=== PATIENT | male | born 1970 | race African-American/Black ===

== ENCOUNTER → 2017-07-05 | Emergency (ER) | END | disposition home or self-care (01) ==

== ENCOUNTER 2017-09-15 05:54 | Emergency (ER) | END 2017-09-15 07:47 | disposition home or self-care (01) ==

== ENCOUNTER 2017-11-17 09:21 | Emergency (ER) | END 2017-11-17 13:00 | disposition home or self-care (01) ==

== ENCOUNTER 2018-07-09 05:28 | Emergency (ER) | payer OTHER ==
[~2018-07-09] VITALS: Ht 180.3 cm; Wt 161.0 kg
[~2018-07-09 05:28] MED LIST: ACET500C5 PO; ALBU8.5H8 INH; BACTDS PO; CEPH-443 PO; CLOT30CR24 TOP; NAPR-985 PO; ONDA8TAB14 PO; TRAM50TA2 PO
[2018-07-09 05:31] VITALS: Ht 180.3 cm; Wt 161.0 kg
[2018-07-09] MEDS ORDERED: ALBUTEROL 0.083% (NEB) 2.5 MG/3 ML AMP HHN STA (06:25)
[2018-07-09] MEDS ORDERED: IPRATROPIUM (NEB) 0.5 MG/2.5 ML AMP HHN ONE (06:30)
[2018-07-09] MEDS ORDERED: DEXAMETHASONE 10 MG/ML 1 ML INJ IM ONE (07:00)
[2018-07-09] MEDS ORDERED: ALBU8.5H8 INH (07:18)
[2018-07-09] MEDS ORDERED: MED4DP PO (07:18)
[2018-07-09] MEDS ORDERED: BENZ-6 PO (07:18)
[2018-07-09] MEDS ORDERED: PROM6.2515 PO (07:18)
[2018-07-09 07:41] VITALS: BP 142/86; PULSE 84; RESP 18
--- NOTE | 2018-07-09 08:10 | ERD ---
ER Documentation Chief Complaint Chief Complaint cough x 2 weeks. c/o sob. no wheezing HPI 48-year-old male presenting with cough times 2 weeks. Patient states that he has been mildly short of breath and his son has been complaining of wheezing at home. He has had a mild runny nose but no fevers. Has been taking Robitussin with no alleviation. Denies any leg swelling or cardiac chest pain. Medical history is diabetes. NKDA. Surgical history denies. Social history denies. ROS All systems reviewed and are negative except as per history of present illness. Medications Home Meds Active Scripts Methylprednisolone* (Medrol* DOSE PACK) 4 Mg/Dose-Pack Tab.ds.pk, 4 MG PO . DIRECTED, #1 PACKET Prov:SWAPNA MICHAEL PA-C 07/09/18 Albuterol Sulfate* (Proair HFA*) 8.5 Gm Hfa.aer.ad, 2 PUFF INH Q4, #1 INHALER Prov:SWAPNA MICHAEL PA-C 07/09/18 Benzonatate* (Tessalon Perle*) 100 Mg Capsule, 100 MG PO Q8H PRN for COUGH, #30 CAP Prov:SWAPNA MICHAEL PA-C 07/09/18 Promethazine Hcl* (Promethazine Hcl* Syrup) 6.25 Mg/5 Ml Syrup, 6.25 MG PO Q6H PRN for COUGH, #100 ML Prov:SWAPNA MICHAEL PA-C 07/09/18 Albuterol Sulfate* (Proair HFA*) 8.5 Gm Hfa.aer.ad, 2 PUFF INH Q4, #1 INHALER Prov:SWAPNA MICHAEL PA-C 11/17/17 Acetaminophen* (Tylophen*) 500 Mg Capsule, 1 CAP PO Q6H PRN for PAIN AND OR ELEVATED TEMP, #15 CAP Prov:KATHIE SAM MD 09/15/17 Ondansetron (Ondansetron Odt) 8 Mg Tab.rapdis, 8 MG PO Q6H PRN for NAUSEA AND/OR VOMITING, #10 TAB Prov:KATHIE SAM MD 09/15/17 Tramadol HCl (Tramadol HCl) 50 Mg Tablet, 50 MG PO Q4 PRN for PAIN, #20 TAB Prov:WERNER DELANEY PA-C 07/05/17 Naproxen* (Naprosyn*) 500 Mg Tablet, 500 MG PO BID PRN for PAIN AND/OR INFLAMMATION, #30 TAB Prov:WERNER DELANEYC 07/05/17 Clotrimazole* (Clotrimazole* AF) 1% - 30 Gm Cream.gm., 1 APPLIC TOP BID for 14 Days, TUB Prov:TIARRA ADEN [employer] 04/05/16 Sulfamethoxazole-Trimethoprim* (Bactrim* DS) 800-160 Mg Tab, 1 TAB PO BID for 7 Days, #14 TAB Prov:TIARRA ADEN [employer] 03/11/16 Sulfamethoxazole-Trimethoprim* (Bactrim* DS) 800-160 Mg Tab, 1 TAB PO BID for 5 Days, TAB Prov:BENY EPSTEIN PA-C 02/13/16 Cephalexin* (Keflex*) 500 Mg Capsule, 500 MG PO QID for 10 Days, CAP Prov:BENY EPSTEIN PA-C 02/13/16 Allergies Allergies: Coded Allergies: No Known Allergy (Unverified , 04/05/16) PMhx/Soc History of Surgery: No Anesthesia Reaction: No Hx Neurological Disorder: No Hx Respiratory Disorders: No Hx Cardiac Disorders: No Hx Psychiatric Problems: No Hx Miscellaneous Medical Probl: Yes (DM) Hx Alcohol Use: No Hx Substance Use: No Hx Tobacco Use: No Smoking Status: Never smoker FmHx Family History: No diabetes, No coronary disease, No other Physical Exam Vitals Vital Signs Date Temp Pulse Resp B/P (MAP) Pulse Ox O2 O2 Flow FiO2 Time Delivery Rate 07/09/18 97.8 84 18 142/86 97 Room Air 07:41 (104) 07/09/18 21 20 93 21 07:11 07/09/18 97.8 100 18 142/86 97 05:31 (104) Physical Exam GENERAL: The patient is well-appearing, well-nourished, in no acute distress HEENT: Atraumatic. Conjunctivae are pink. Pupils equal, round, and reactive to light. There is no scleral icterus. Tympanic membranes clear bilaterally. Oropharynx clear. . CHEST: Clear to auscultation bilaterally. There are no rales, wheezes or rhonchi. HEART: Regular rate and rhythm. No murmurs, clicks, rubs or gallops. No S3 or S4. Results 24 hrs Current Medications Medications Dose Sig/Briseyda Start Time Status Last (Trade) Ordered Route PRN Stop Time Admin Dose Reason Admin Albuterol 5 mg ONCE STAT 07/09/18 DC 07/09/18 (Proventil HHN 06:25 07:10 0.083% (Neb)) 07/09/18 06:27 Ipratropium 0.5 mg ONCE ONCE 07/09/18 DC 07/09/18 [place] HHN 06:30 07:10 (Atrovent 07/09/18 06:31 0.02% (Neb)) 10 mg ONCE ONCE 07/09/18 DC 07/09/18 Dexamethasone IM 07:00 07:31 (Decadron) 07/09/18 07:01 Procedures/MDM DIAGNOSTIC IMAGING REPORT Patient: RADHA ROSALES : 1970 Age: 48 Sex: M MR #: [id number] DOS: 07/09/1825 Ordering MD: BANDAR MICHAEL PA-C Location: [facility] Room/Bed: PROCEDURE: XR Chest 1 View CLINICAL INDICATION: Cough. TECHNIQUE: VIEWS: 1 IMAGES: 2 COMPARISON: November 17, 2017 FINDINGS: CARDIAC AND MEDIASTINAL SILHOUETTES: Within normal limits. LUNGS: Appear clear. OSSEOUS STRUCTURES: Unremarkable. IMPRESSION: 1. No acute abnormality is appreciated. ER Course: Albuterol and Atrovent breathing treatment given ED. Decadron given ED. MDM: 48-year-old male presenting with cough. I have low suspicion for pneumonia. I have low suspicion for respiratory distress or hypoxia. Patient likely has viral cough and will be discharged with supportive medications. I have low suspicion for cardiac emergency. Patient is told if symptoms change or worsen to immediately return to the ER. All questions answered at discharge Departure Diagnosis: Primary Impression: Cough Condition: Stable Patient Instructions: Cough, Chronic, Uncertain Cause, (Adult) Referrals: COMMUNITY CLINICS YOU HAVE RECEIVED A MEDICAL SCREENING EXAM AND THE RESULTS INDICATE THAT YOU DO NOT HAVE A CONDITION THAT REQUIRES URGENT TREATMENT IN THE EMERGENCY DEPARTMENT. FURTHER EVALUATION AND TREATMENT OF YOUR CONDITION CAN WAIT UNTIL YOU ARE SEEN IN YOUR DOCTORS OFFICE WITHIN THE NEXT 1-2 DAYS. IT IS YOUR RESPONSIBILITY TO MAKE AN APPOINTMENT FOR FOLOW-UP CARE. IF YOU HAVE A PRIMARY DOCTOR --you should call your primary doctor and schedule an appointment IF YOU DO NOT HAVE A PRIMARY DOCTOR YOU CAN CALL OUR PHYSICIAN REFERRAL HOTLINE AT IF YOU CAN NOT AFFORD TO SEE A PHYSICIAN YOU CAN CHOSE FROM THE FOLLOWING [facility] [address] [facility] [address] [facility] [address] [facility] [address] [facility] [address] [facility]. [facility]. [address] Additional Instructions: FOLLOW UP WITH YOUR PRIMARY CARE PHYSICIAN TOMORROW.Return to this facility if you are not improving as expected. SWAPNA MICHAEL PA-C Jul 09, 2018 08:10
== END 2018-07-09 07:41 | disposition home or self-care (01) ==
LOC: FTE 05:28
DX: R05 Cough (principal); E11.9 Type 2 diabetes mellitus without complications
CPT/HCPCS: 71045; 94664; 96372; J1100; Z7502; Z7610

== ENCOUNTER 2018-12-09 15:07 | Emergency (ER) | payer SELFPAY ==
[~2018-12-09] VITALS: Ht 180.3 cm; Wt 157.0 kg
[~2018-12-09 15:07] MED LIST changes: +BENZ-6 PO; +MED4DP PO; +PROM6.2515 PO
[2018-12-09 15:22] VITALS: Ht 180.3 cm; Wt 157.0 kg
[2018-12-09] MEDS ORDERED: VANCOMYCIN 1 GM (PMX) 250 ML IVPB STA (18:03)
[2018-12-09] MEDS ORDERED: ACETAMINOPHEN 325 MG TAB PO STA (18:03)
[2018-12-09] MEDS ORDERED: DEXAMETHASONE 10 MG/ML 1 ML INJ IV ONE (18:30)
[2018-12-09] MEDS ORDERED: CEFTRIAXONE 1 GM/50 ML (PMX) 50 ML IVPB ONE (18:30)
--- NOTE | 2018-12-09 21:19 | ERD ---
ER Documentation Chief Complaint Chief Complaint LEFT LOWER LEG SWELLING, REPORTS SMALL KNIFE PUNCTURE WOUND HPI 48-year-old male, with history of diabetes, morbid obesity and venous stasis, presents to the emergency department, complaining of 3 days with progressive worsening of left lower extremity edema, erythema and local tenderness, a minor puncture wound with a knife while the patient was cooking and the knife fell off his hands. He denies fever, no chills, no antalgic gait. No reports of distal weakness, numbness or tingling. ROS All systems reviewed and are negative except as per history of present illness. Medications Home Meds Active Scripts Ibuprofen* (Motrin*) 400 Mg Tab, 400 MG PO Q6H PRN for PAIN AND OR ELEVATED TEMP, #30 TAB Prov:HORACE MCKINNEY MD 12/09/18 Sulfamethoxazole/Trimethoprim* (Bactrim Ds* Tablet) 1 Each Tablet, 1 TAB PO BID, #14 TAB Prov:HORACE MCKINNEY MD 12/09/18 Cephalexin* (Keflex*) 500 Mg Capsule, 500 MG PO QID for 7 Days, CAP Prov:HORACE MCKINNEY MD 12/09/18 Methylprednisolone* (Medrol* DOSE PACK) 4 Mg/Dose-Pack Tab.ds.pk, 4 MG PO . DI RECTABBY, #1 PACKET Prov:SWAPNA MICHAEL PA-C 07/09/18 Albuterol Sulfate* (Proair HFA*) 8.5 Gm Hfa.aer.ad, 2 PUFF INH Q4, #1 INHALER Prov:SWAPNA MICHAEL PA-C 07/09/18 Benzonatate* (Tessalon Perle*) 100 Mg Capsule, 100 MG PO Q8H PRN for COUGH, #30 CAP Prov:SWAPNA MICHAEL PA-C 07/09/18 Promethazine Hcl* (Promethazine Hcl* Syrup) 6.25 Mg/5 Ml Syrup, 6.25 MG PO Q6H PRN for COUGH, #100 ML Prov:SWAPNA MICHAEL PA-C 07/09/18 Albuterol Sulfate* (Proair HFA*) 8.5 Gm Hfa.aer.ad, 2 PUFF INH Q4, #1 INHALER Prov:SWAPNA MICHAEL PA-C 11/17/17 Acetaminophen* (Tylophen*) 500 Mg Capsule, 1 CAP PO Q6H PRN for PAIN AND OR ELEVATED TEMP, #15 CAP Prov:KATHIE SAM MD 09/15/17 Ondansetron (Ondansetron Odt) 8 Mg Tab.rapdis, 8 MG PO Q6H PRN for NAUSEA AND/OR VOMITING, #10 TAB Prov:KATHIE SAM MD 09/15/17 Tramadol HCl (Tramadol HCl) 50 Mg Tablet, 50 MG PO Q4 PRN for PAIN, #20 TAB Prov:WERNER DELANEY PA-C 07/05/17 Naproxen* (Naprosyn*) 500 Mg Tablet, 500 MG PO BID PRN for PAIN AND/OR INFLAMMATION, #30 TAB Prov:WERNER DELANEY PA-C 07/05/17 Clotrimazole* (Clotrimazole* AF) 1% - 30 Gm Cream.gm., 1 APPLIC TOP BID for 14 Days, TUB Prov:TIARRA ADEN NP 04/05/16 Sulfamethoxazole-Trimethoprim* (Bactrim* DS) 800-160 Mg Tab, 1 TAB PO BID for 7 Days, #14 TAB Prov:TIARRA ADEN MARK[employer]ING SALES CONSULTANT 03/11/16 Sulfamethoxazole-Trimethoprim* (Bactrim* DS) 800-160 Mg Tab, 1 TAB PO BID for 5 Days, TAB Prov:BENY EPSTEIN PA-C 02/13/16 Cephalexin* (Keflex*) 500 Mg Capsule, 500 MG PO QID for 10 Days, CAP Prov:BENY EPSTEIN PA-C 02/13/16 Allergies Allergies: Coded Allergies: No Known Allergy (Unverified , 04/05/16) PMhx/Soc The patient reports history of diabetes. History of Surgery: No Anesthesia Reaction: No Hx Neurological Disorder: No Hx Respiratory Disorders: No Hx Cardiac Disorders: No Hx Psychiatric Problems: No Hx Miscellaneous Medical Probl: No Hx Alcohol Use: No Hx Substance Use: No Hx Tobacco Use: No Smoking Status: Never smoker FmHx Family History: diabetes; No coronary disease Physical Exam Vitals Vital Signs Date Temp Pulse Resp B/P (MAP) Pulse Ox O2 O2 Flow FiO2 Time Delivery Rate 12/09/18 98.7 88 20 154/88 95 22:53 (110) 12/09/18 100.2 99 20 154/62 95 15:22 (92) Physical Exam Const: No acute distress Head: Atraumatic Eyes: Normal Conjunctiva ENT: Normal External Ears, Nose and Mouth. Neck: Full range of motion. No meningismus. Resp: Clear to auscultation bilaterally Cardio: Regular rate and rhythm, no murmurs Abd: Soft, non tender, non distended. Normal bowel sounds Skin: No petechiae or rashes Back: No midline or flank tenderness Ext: Left lower extremity: With a well demarcated area of erythema, edema and induration over the distal third without compromising the foot. Distal neurovascular exam intact. No evidence of fluctuance. Neur: Awake and alert Psych: Normal Mood and Affect Result Diagram: 12/09/18 1902 12/09/181902 Results 24 hrs Laboratory Tests Test 12/09/18 19:02 12/09/18 19:03 White Blood Count 18.1 10^3/ul Red Blood Count 4.92 10^6/ul Hemoglobin 13.2 g/dl Hematocrit 41.9 % Mean Corpuscular Volume 85.2 fl Mean Corpuscular Hemoglobin 26.8 pg Mean Corpuscular Hemoglobin Concent 31.5 g/dl Red Cell Distribution Width 14.7 % Platelet Count 284 10^3/UL Mean Platelet Volume 9.6 fl Immature Granulocytes % 0.600 % Neutrophils % 76.9 % Lymphocytes % 10.2 % Monocytes % 11.2 % Eosinophils % 0.7 % Basophils % 0.4 % Nucleated Red Blood Cells % 0.0 /100WBC Immature Granulocytes # 0.100 10^3/ul Neutrophils # 14.0 10^3/ul Lymphocytes # 1.8 10^3/ul Monocytes # 2.0 10^3/ul Eosinophils # 0.1 10^3/ul Basophils # 0.1 10^3/ul Nucleated Red Blood Cells # 0.0 10^3/ul Sodium Level 137 mmol/L Potassium Level 4.2 mmol/L Chloride Level 98 mmol/L Carbon Dioxide Level 32 mmol/L Anion Gap 7 Blood Urea Nitrogen 12 mg/dl Creatinine 1.18 mg/dl Est Glomerular Filtrat Rate mL/min > 60 mL/min Glucose Level 116 mg/dl Calcium Level 10.8 mg/dl Current Medications Medications Dose Sig/Briseyda Start Time Status Last (Trade) Ordered Route PRN Stop Time Admin Dose Reason Admin 650 mg ONCE STAT 12/09/18 DC 12/09/18 Acetaminophen PO 18:03 19:13 (Tylenol 12/09/18 18:06 Tab) Vancomycin 250 ml @ ONCE STAT 12/09/18 DC 12/09/18 HCl 125 mls/hr IVPB 18:03 20:18 12/09/18 20:02 Ceftriaxone 50 ml @ ONCE ONCE 12/09/18 DC 12/09/18 Sodium 100 mls/hr IVPB 18:30 19:22 12/09/18 18:59 8 mg ONCE ONCE 12/09/18 DC 12/09/18 Dexamethasone IV 18:30 19:19 (Decadron) 12/09/18 18:31 Procedures/MDM Vital signs stable, differential diagnosis include but not limited to: DVT, superficial thrombosis, cellulitis, erysipelas, shingles, abscess. Low suspicion for acute systemic infectious process. Physical examination and clinical presentation consistent most likely with cellulitis of the left lower extremity without evidence of abscess formation. During the ED course the patient remained stable, no new complaints. The patient received treatment with IV fluids and IV antibiotics. Results and clinical impression discussed with the patient who agrees with management. The patient is stable to be treated outpatient and will be discharged home with a Rx for antibiotics, anti-inflammatories and pain medications, some side effects of prescribed medications (headache, rash, nausea, vomiting, diarrhea, drowsiness, habituation, bleeding, hypertension, interactions with other medications) were reviewed. The patient was instructed to return to the emergency department tomorrow for IV antibiotics. If symptoms persist, worsen or new symptoms develop, then patient should return to the ED immediately. Instructions explained and given directly by me to the patient and relatives w ith acknowledgment and demonstrated understanding. Disclaimer: Inadvertent spelling and grammatical errors are likely due to EHR/dictation software use and do not reflect on the overall quality of patient care. Also, please note that the electronic time recorded on this note does not necessarily reflect the actual time of the patient encounter. Departure Diagnosis: Primary Impression: Cellulitis of left lower extremity without foot Condition: Stable Additional Instructions: Thank you very much for allowing us to participate in your care. Your health and safety is our top priority at [facility]. PLEASE RETURN TO THE EMERGENCY DEPARTMENT TOMORROW FOR ANOTHER DOSE OF IV ANTIBIOTICS. Have prescriptions filled and follow precisely the directions on the label. If the symptoms get worse and your provider is unavailable, return to the Emergency Department immediately. HORACE MCKINNEY MD Dec 09, 2018 21:19
[2018-12-09] MEDS ORDERED: SULF1TAB31 PO (21:21)
[2018-12-09] MEDS ORDERED: IBUP-1561 PO (21:21)
[2018-12-09] MEDS ORDERED: CEPH-443 PO (21:21)
[2018-12-09 22:53] VITALS: BP 154/88; PULSE 88; RESP 20
== END 2018-12-09 22:54 | disposition home or self-care (01) ==
LOC: FTE 15:07
DX: L03.116 Cellulitis of left lower limb (principal)
CPT/HCPCS: 36415; 80048; 85025; 96365; 96366; 96367; 96375; 99284; J0696; J1100; J3370

== ENCOUNTER 2018-12-10 11:39 | Emergency (ER) | payer SELFPAY ==
[~2018-12-10] VITALS: Ht 180.3 cm; Wt 155.3 kg
[~2018-12-10 11:39] MED LIST changes: +IBUP-1561 PO; +SULF1TAB31 PO
[2018-12-10 12:02] VITALS: BP 165/75; PULSE 103; RESP 18; Ht 180.3 cm; Wt 155.3 kg
[2018-12-10] MEDS ORDERED: KETOROLAC 15 MG INJ IV STA (12:25)
--- NOTE | 2018-12-10 12:27 | ERD ---
ER Documentation Chief Complaint Chief Complaint told by Dr Morrison to rtn today for IV ABX HPI 48-year-old male, with history of diabetes and venous stasis, return to the emergency department after being instructed by me to return for IV antibiotics. The patient refers feeling much better, no fever or chills, pain has seen effectively decreased. ROS All systems reviewed and are negative except as per history of present illness. Medications Home Meds Active Scripts Ibuprofen* (Motrin*) 400 Mg Tab, 400 MG PO Q6H PRN for PAIN AND OR ELEVATED TEMP, #30 TAB Prov:HORACE MCKINNEY MD 12/09/18 Sulfamethoxazole/Trimethoprim* (Bactrim Ds* Tablet) 1 Each Tablet, 1 TAB PO BID, #14 TAB Prov:HORACE MCKINNEY MD 12/09/18 Cephalexin* (Keflex*) 500 Mg Capsule, 500 MG PO QID for 7 Days, CAP Prov:HORACE MCKINNEY MD 12/09/18 Methylprednisolone* (Medrol* DOSE PACK) 4 Mg/Dose-Pack Tab.ds.pk, 4 MG PO . DIRECTED, #1 PACKET Prov:SWAPNA MICHAEL PA-C 07/09/18 Albuterol Sulfate* (Proair HFA*) 8.5 Gm Hfa.aer.ad, 2 PUFF INH Q4, #1 INHALER Prov:SWAPNA MICHAEL PA-C 07/09/18 Benzonatate* (Tessalon Perle*) 100 Mg Capsule, 100 MG PO Q8H PRN for COUGH, #30 CAP Prov:SWAPNA MICHAEL PA-C 07/09/18 Promethazine Hcl* (Promethazine Hcl* Syrup) 6.25 Mg/5 Ml Syrup, 6.25 MG PO Q6H PRN for COUGH, #100 ML Prov:SWAPNA MICHAEL PA-C 07/09/18 Albuterol Sulfate* (Proair HFA*) 8.5 Gm Hfa.aer.ad, 2 PUFF INH Q4, #1 INHALER Prov:SWAPNA MICHAEL PA-C 11/17/17 Acetaminophen* (Tylophen*) 500 Mg Capsule, 1 CAP PO Q6H PRN for PAIN AND OR ELEVATED TEMP, #15 CAP Prov:KATHIE SAM MD 09/15/17 Ondansetron (Ondansetron Odt) 8 Mg Tab.rapdis, 8 MG PO Q6H PRN for NAUSEA AND/OR VOMITING, #10 TAB Prov:KATHIE SAM MD 09/15/17 Tramadol HCl (Tramadol HCl) 50 Mg Tablet, 50 MG PO Q4 PRN for PAIN, #20 TAB Prov:WERNER DELANEY PA-C 07/05/17 Naproxen* (Naprosyn*) 500 Mg Tablet, 500 MG PO BID PRN for PAIN AND/OR INFLA MMATION, #30 TAB Prov:WERNER DELANEY PA-C 07/05/17 Clotrimazole* (Clotrimazole* AF) 1% - 30 Gm Cream.gm., 1 APPLIC TOP BID for 14 Days, TUB Prov:TIARRA ADEN SLEEVE TAILOR 04/05/16 Sulfamethoxazole-Trimethoprim* (Bactrim* DS) 800-160 Mg Tab, 1 TAB PO BID for 7 Days, #14 TAB Prov:TIARRA ADEN SLEEVE TAILOR 03/11/16 Sulfamethoxazole-Trimethoprim* (Bactrim* DS) 800-160 Mg Tab, 1 TAB PO BID for 5 Days, TAB Prov:BENY EPSTEIN PA-C 02/13/16 Cephalexin* (Keflex*) 500 Mg Capsule, 500 MG PO QID for 10 Days, CAP Prov:BENY EPSTEIN PA-C 02/13/16 Allergies Allergies: Coded Allergies: No Known Allergy (Unverified , 04/05/16) PMhx/Soc The patient with diabetes. History of Surgery: No Anesthesia Reaction: No Hx Neurological Disorder: No Hx Respiratory Disorders: No Hx Cardiac Disorders: No Hx Psychiatric Problems: No Hx Miscellaneous Medical Probl: No Hx Alcohol Use: No Hx Substance Use: No Hx Tobacco Use: No FmHx Family History: diabetes Physical Exam Vitals Vital Signs Date Temp Pulse Resp B/P (MAP) Pulse Ox O2 O2 Flow FiO2 Time Delivery Rate 12/10/18 98.8 103 18 165/75 96 12:02 (105) Physical Exam Const: No acute distress Head: Atraumatic Eyes: Normal Conjunctiva ENT: Normal External Ears, Nose and Mouth. Neck: Full range of motion. No meningismus. Resp: Clear to auscultation bilaterally Cardio: Regular rate and rhythm, no murmurs Abd: Soft, non tender, non distended. Normal bowel sounds Skin: No petechiae or rashes Back: No midline or flank tenderness Ext: Left lower extremity: With significantly improved area of erythema, warmth and induration. Distal neurovascular exam intact. Neur: Awake and alert Psych: Normal Mood and Affect Result Diagram: 12/10/18 1235 12/10/18 1235 Results 24 hrs Laboratory Tests Test 12/10/18 12:35 White Blood Count 21.1 10^3/ul Red Blood Count 4.90 10^6/ul Hemoglobin 13.2 g/dl Hematocrit 41.8 % Mean Corpuscular Volume 85.3 fl Mean Corpuscular Hemoglobin 26.9 pg Mean Corpuscular Hemoglobin Concent 31.6 g/dl Red Cell Distribution Width 14.6 % Platelet Count 295 10^3/UL Mean Platelet Volume 9.8 fl Immature Granulocytes % 0.800 % Neutrophils % 88.8 % Lymphocytes % 3.4 % Monocytes % 6.8 % Eosinophils % 0.0 % Basophils % 0.2 % Nucleated Red Blood Cells % 0.0 /100WBC Immature Granulocytes # 0.160 10^3/ul Neutrophils # 18.7 10^3/ul Lymphocytes # 0.7 10^3/ul Monocytes # 1.4 10^3/ul Eosinophils # 0.0 10^3/ul Basophils # 0.0 10^3/ul Nucleated Red Blood Cells # 0.0 10^3/ul Sodium Level 140 mmol/L Potassium Level 4.4 mmol/L Chloride Level 105 mmol/L Carbon Dioxide Level 25 mmol/L Anion Gap 10 Blood Urea Nitrogen 15 mg/dl Creatinine 0.98 mg/dl Est Glomerular Filtrat Rate mL/min > 60 mL/min Glucose Level 262 mg/dl Calcium Level 10.5 mg/dl Current Medications Medications Dose Sig/Briseyda Start Time Status Last (Trade) Ordered Route PRN Stop Time Admin Dose Reason Admin Ceftriaxone 50 ml @ ONCE ONCE 12/10/18 DC 12/10/18 Sodium 100 mls/hr IVPB 12:30 12:44 12/10/18 12:59 Ketorolac 15 mg ONCE STAT 12/10/18 DC 12/10/18 Tromethamine IV 12:25 12:44 (Toradol) 12/10/18 12:29 Sodium 1,000 ml @ Q1H ONCE 12/10/18 DC 12/10/18 Chloride 1,000 mls/hr IV 12:30 12:44 12/10/18 13:29 Procedures/MDM Vital signs stable, significant improvement compared with yesterday, the patient refers feeling much better. Labs requested and reviewed: CBC: Increased WBCs which I consider is secondary to the Decadron given yesterday, no evidence of severe anemia, platelets normal. CMP: Normal electrolytes, normal kidney function, normal liver function, normal lipase, blood sugar elevated to 262, no metabolic acidosis. During the ED course the patient remained stable, no new complaints. The patient received treatment with IV Rocephin. Results and clinical impression discussed with the patient who agrees with management. The patient is stable to be treated outpatient and will be discharged home, prescriptions and note for work was given yesterday. The patient was instructed to follow up with the primary care provider in the next 48h. If symptoms persist, worsen or new symptoms develop, then patient should return to the ED immediately. Instructions explained and given directly by me to the patient and relatives with acknowledgment and demonstrated understanding. Disclaimer: Inadvertent spelling and grammatical errors are likely due to EHR/dictation software use and do not reflect on the overall quality of patient care. Also, please note that the electronic time recorded on this note does not necessarily reflect the actual time of the patient encounter. Departure Diagnosis: Primary Impression: Cellulitis of left lower extremity without foot Condition: Stable Additional Instructions: Thank you very much for allowing us to participate in your care. Your health and safety is our top priority at [facility]. The evaluation in the emergency department has been done to rule out an acute emergency. Chronic, [id number] conditions may have not been evaluated; therefore, you need to follow up with a primary care provider in the next 48h. If symptoms persist, worsen or new symptoms develop, then patient should return to the ED immediately. Call your primary care doctor TOMORROW for an appointment during the next 2-4 days and bring all the information provided. Have prescriptions filled and follow precisely the directions on the label. If the symptoms get worse and your provider is unavailable, return to the Emergency Department immediately. HORACE MCKINNEY MD Dec 10, 2018 12:27
[2018-12-10] MEDS ORDERED: SOD CHLORIDE 0.9% 1,000 ML IV ONE (12:30)
[2018-12-10] MEDS ORDERED: CEFTRIAXONE 1 GM/50 ML (PMX) 50 ML IVPB ONE (12:30)
== END 2018-12-10 14:07 | disposition home or self-care (01) ==
LOC: FTE 11:39
DX: L03.116 Cellulitis of left lower limb (principal); E11.9 Type 2 diabetes mellitus without complications
CPT/HCPCS: 80048; 85025; 96365; 96375; 99284; J0696; J1885; J7030